=== PATIENT | female | born 1995 | race African-American/Black ===

== ENCOUNTER 2017-03-22 19:20 | Inpatient (IN) | payer OTHER ==
[~2017-03-22] VITALS: Ht 157.5 cm; Wt 43.1 kg
[2017-03-22] MEDS ORDERED: SODIUM CHLORIDE 0.9% 1,000ML IVBOLUS ONE (19:30)
[2017-03-22 19:58] LABS: HEMATOCRIT 41.6 % (34.6-47.8); HEMOGLOBIN 13.7 g/dL (11.7-16.4); WHITE BLOOD COUNT 10.7 x10^3/uL (3.4-10)
[2017-03-22] MEDS ORDERED: PLEASE ENTER ALLERGIES MC SCH ×2 (20:00)
[2017-03-22] MEDS ORDERED: PLEASE ENTER HEIGHT AND WEIGHT MC SCH (20:00)
[2017-03-22 20:06] LABS: ASPARTATE AMINO TRANSFERASE 48 U/L (15-37); BLOOD UREA NITROGEN 9 mg/dL (7-18)
[2017-03-22 20:17] LABS: ACETAMINOPHEN < 2 mcg/mL (10-30)
[2017-03-22] MEDS ORDERED: LORazepam 2 MG/ML, 1ML IVPush ONE ×2 (21:00→23:00)
[2017-03-22] MEDS ORDERED: LORazepam 2 MG/ML, 1ML ONE ×2 (21:02→22:53)
[2017-03-23] MEDS: D5%-0.45NACL+KCL 20MEQ 1,000 ML IV SCH ×3 (00:15→14:15)
[2017-03-23 01:18] LABS: DAU SCREEN DISCLAIMER
[2017-03-23] MEDS ORDERED: ACETAMINOPHEN 325 MG TABLET PO PRN (02:00)
[2017-03-23] MEDS ORDERED: CEFTRIAXONE PMX 1GM/50ML 50 ML IV ONE (02:00)
[2017-03-23 02:50] VITALS: BP 120/81
[2017-03-23] MEDS: CEFTRIAXONE 500 MG in DEXTROSE 5% 50 ML IV SCH ×2 (03:11→13:48)
[2017-03-23 05:58] LABS: ASPARTATE AMINO TRANSFERASE 32 U/L (15-37); BLOOD UREA NITROGEN 7 mg/dL (7-18)
[2017-03-23] MEDS ORDERED: POTASSIUM CHLORIDE 20 MEQ TAB.ER.PRT PO ONE (07:30)
[2017-03-23 08:00] VITALS: BP 98/57
[2017-03-23] MEDS ORDERED: DIPHENHYDRAMINE 50 MG/ML, 1ML IV ONE (16:30)
[2017-03-23] MEDS ORDERED: DIPHENHYDRAMINE 25 MG CAPSULE ONE (16:39)
[2017-03-23] MEDS ORDERED: hydrOXYzine 50 MG/ML IM PRN (17:00)
[2017-03-23] MEDS ORDERED: DIPHENHYDRAMINE 25 MG CAPSULE PO ONE (17:00)
[2017-03-23] MEDS: LORazepam 1MG TABLET PO PRN (21:58)
[2017-03-23 22:00] VITALS: BP 118/94
[2017-03-24 01:21] VITALS: BP 113/80
[2017-03-24] MEDS ORDERED: OLANZAPINE 5 MG TABLET PO SCH (02:00)
[2017-03-24] MEDS: CEFTRIAXONE 500 MG in DEXTROSE 5% 50 ML IV SCH ×2 (02:17→14:41)
[2017-03-24] MEDS: hydrOXYzine 25 MG/ML IM PRN ×2 (02:40→16:57)
[2017-03-24 05:33] LABS: BLOOD UREA NITROGEN 4 mg/dL (7-18)
[2017-03-24 05:39] LABS: HEMATOCRIT 36.2 % (34.6-47.8); HEMOGLOBIN 11.9 g/dL (11.7-16.4); WHITE BLOOD COUNT 9.2 x10^3/uL (3.4-10)
[2017-03-24] MEDS: POTASSIUM CHLORIDE 20 MEQ TAB.ER.PRT PO ONE ×2 (07:00→07:43)
[2017-03-24 07:47] VITALS: BP 95/57
[2017-03-24] MEDS: D5%-0.45NACL+KCL 20MEQ 1,000 ML IV SCH ×2 (11:00→21:43)
[2017-03-24] MEDS ORDERED: LORazepam 2 MG/ML, 1ML IM ONE (14:00)
[2017-03-24] MEDS ORDERED: LORazepam 2 MG/ML, 1ML ONE (14:11)
[2017-03-24] MEDS ORDERED: LORazepam 2 MG/ML, 1ML IVPush ONE (14:30)
[2017-03-24 14:44] VITALS: BP 110/70
[2017-03-24 18:25] VITALS: BP 119/82
[2017-03-24] MEDS: OLANZAPINE 5 MG TABLET PO SCH (20:53)
[2017-03-25 00:49] VITALS: BP 124/80
[2017-03-25] MEDS: hydrOXYzine 25 MG/ML IM PRN (01:05)
[2017-03-25] MEDS: CEFTRIAXONE 500 MG in DEXTROSE 5% 50 ML IV SCH ×2 (02:39→13:41)
[2017-03-25 06:14] LABS: BLOOD UREA NITROGEN 3 mg/dL (7-18)
[2017-03-25 06:17] LABS: ASPARTATE AMINO TRANSFERASE 61 U/L (15-37)
[2017-03-25 07:56] VITALS: BP 95/56
[2017-03-25] MEDS: D5%-0.45NACL+KCL 20MEQ 1,000 ML IV SCH ×2 (08:51→19:15)
[2017-03-25 10:14] VITALS: BP 111/73
[2017-03-25 12:26] VITALS: BP 108/59
[2017-03-25] MEDS: LORazepam 1MG TABLET PO PRN (17:20)
[2017-03-25] MEDS ORDERED: LORazepam 2 MG/ML, 1ML IVPush ONE ×2 (17:36→17:57)
[2017-03-25] MEDS ORDERED: LORazepam 2 MG/ML, 1ML ONE (17:40)
[2017-03-25 19:07] VITALS: BP 125/92
[2017-03-25] MEDS ORDERED: HALOPERIDOL 5 MG/ML IV ONE (20:00)
[2017-03-25] MEDS: OLANZAPINE 5 MG TABLET PO SCH (20:16)
[2017-03-26 02:00] VITALS: BP 96/52
[2017-03-26] MEDS: CEFTRIAXONE 500 MG in DEXTROSE 5% 50 ML IV SCH ×2 (02:18→16:17)
[2017-03-26] MEDS: LORazepam 1MG TABLET PO PRN (02:18)
[2017-03-26] MEDS: D5%-0.45NACL+KCL 20MEQ 1,000 ML IV SCH ×2 (06:12→17:35)
[2017-03-26 07:33] LABS: BLOOD UREA NITROGEN 3 mg/dL (7-18)
[2017-03-26 07:43] VITALS: BP 88/47
[2017-03-26] MEDS ORDERED: OLANZAPINE 10 MG INJ IM PRN (11:00)
[2017-03-26 13:27] VITALS: BP 103/68
[2017-03-26] MEDS ORDERED: FENTANYL PF 100 MCG/2ML ONE (14:42)
[2017-03-26] MEDS ORDERED: FLUMAZENIL 0.1 MG/1 ML, 5ML ONE (14:43)
[2017-03-26] MEDS ORDERED: NALOXONE 1 MG/ML, 2ML ONE (14:43)
[2017-03-26] MEDS ORDERED: MIDAZOLAM 1 MG/ML, 5ML ONE (14:43)
[2017-03-26 16:30] LABS: GLUCOSE, CSF 54 mg/dL (40-80)
[2017-03-26 20:24] VITALS: BP 115/64
[2017-03-26] MEDS: OLANZAPINE 5 MG TABLET PO SCH (20:43)
[2017-03-27 01:07] VITALS: BP 109/71
[2017-03-27] MEDS: D5%-0.45NACL+KCL 20MEQ 1,000 ML IV SCH ×2 (03:22→15:25)
[2017-03-27] MEDS: LORazepam 1MG TABLET PO PRN (03:59)
[2017-03-27] MEDS: CEFTRIAXONE 500 MG in DEXTROSE 5% 50 ML IV SCH (04:00)
[2017-03-27 07:55] VITALS: BP 94/54
[2017-03-27] MEDS: MULTIVITAMIN 1 TABLET PO SCH (08:49)
[2017-03-27] MEDS: OLANZAPINE 5 MG TABLET PO SCH (08:50)
[2017-03-27 11:04] LABS: ASPARTATE AMINO TRANSFERASE 37 U/L (15-37); BLOOD UREA NITROGEN 4 mg/dL (7-18)
[2017-03-27] MEDS: ARIPIPRAZOLE 10 MG TABLET PO SCH (12:53)
[2017-03-27 13:31] VITALS: BP 110/68
[2017-03-27 20:00] VITALS: BP 104/69
[2017-03-28] MEDS: D5%-0.45NACL+KCL 20MEQ 1,000 ML IV SCH ×3 (01:32→21:28)
[2017-03-28 02:00] VITALS: BP 126/93
[2017-03-28 05:23] LABS: BLOOD UREA NITROGEN 8 mg/dL (7-18)
[2017-03-28 05:26] LABS: ASPARTATE AMINO TRANSFERASE 31 U/L (15-37)
[2017-03-28 08:00] VITALS: BP 105/66
[2017-03-28] MEDS: ARIPIPRAZOLE 10 MG TABLET PO SCH (12:04)
[2017-03-28] MEDS: MULTIVITAMIN 1 TABLET PO SCH (12:06)
[2017-03-28 12:56] VITALS: BP 118/79
[2017-03-28 19:58] VITALS: BP 105/74
[2017-03-29 03:50] VITALS: BP 111/80
[2017-03-29 08:45] VITALS: BP 108/72
[2017-03-29] MEDS: MULTIVITAMIN 1 TABLET PO SCH (08:46)
[2017-03-29] MEDS: ARIPIPRAZOLE 10 MG TABLET PO SCH (08:46)
[2017-03-29 09:57] VITALS: BP 112/80
[2017-03-29] MEDS: D5%-0.45NACL+KCL 20MEQ 1,000 ML IV SCH ×2 (13:24→23:13)
[2017-03-29 14:00] VITALS: BP 122/78
[2017-03-29 19:28] VITALS: BP 102/63
[2017-03-30 03:18] VITALS: BP 106/69
[2017-03-30 08:05] VITALS: BP 98/56
[2017-03-30] MEDS: ARIPIPRAZOLE 10 MG TABLET PO SCH (08:49)
[2017-03-30] MEDS: MULTIVITAMIN 1 TABLET PO SCH (08:49)
[2017-03-30] MEDS: D5%-0.45NACL+KCL 20MEQ 1,000 ML IV SCH (08:50)
[2017-03-30 13:57] VITALS: BP 106/74
[2017-03-30 18:39] VITALS: BP 100/63
[2017-03-31 02:00] VITALS: BP 100/64
[2017-03-31 09:09] VITALS: BP 108/71
[2017-03-31] MEDS: MULTIVITAMIN 1 TABLET PO SCH (09:17)
[2017-03-31] MEDS: ARIPIPRAZOLE 10 MG TABLET PO SCH (09:17)
[2017-03-31] MEDS ORDERED: SENNA/DOCUSATE TABLET PO PRN (13:30)
[2017-03-31 14:19] VITALS: BP 104/67
[2017-03-31 18:56] VITALS: BP 103/72
[2017-04-01 03:15] VITALS: BP 112/63
[2017-04-01 07:54] VITALS: BP 99/60
[2017-04-01] MEDS: MULTIVITAMIN 1 TABLET PO SCH (09:08)
[2017-04-01] MEDS: ARIPIPRAZOLE 10 MG TABLET PO SCH (09:08)
[2017-04-01 11:55] LABS: HEMATOCRIT 36.5 % (34.6-47.8); WHITE BLOOD COUNT 8.5 x10^3/uL (3.4-10)
[2017-04-01 12:05] LABS: BLOOD UREA NITROGEN 12 mg/dL (7-18)
[2017-04-01 15:13] VITALS: BP 106/67
[2017-04-01] MEDS ORDERED: MAGNESIUM SULFATE PMX 2GM/50ML 50 ML IV ONE (15:30)
[2017-04-01 19:29] VITALS: BP 103/68
[2017-04-02 02:09] VITALS: BP 97/62
[2017-04-02] MEDS: ARIPIPRAZOLE 10 MG TABLET PO SCH (08:32)
[2017-04-02] MEDS: MULTIVITAMIN 1 TABLET PO SCH (08:32)
[2017-04-02 09:18] VITALS: BP 116/78
[2017-04-02 15:30] VITALS: BP 116/80
[2017-04-02 18:58] VITALS: BP 104/74
[2017-04-03 03:35] VITALS: BP 114/83
[2017-04-03 08:00] VITALS: BP 111/74
[2017-04-03] MEDS: ARIPIPRAZOLE 10 MG TABLET PO SCH (09:11)
[2017-04-03] MEDS: MULTIVITAMIN 1 TABLET PO SCH (09:11)
[2017-04-03 14:22] VITALS: BP 111/75
[2017-04-03 19:30] VITALS: BP 99/66
[2017-04-04 08:13] VITALS: BP 108/71
[2017-04-04] MEDS: ARIPIPRAZOLE 10 MG TABLET PO SCH (08:28)
[2017-04-04] MEDS: MULTIVITAMIN 1 TABLET PO SCH (08:28)
[2017-04-04] MEDS ORDERED: ARIP10TA33 PO (13:12)
== END 2017-04-04 15:59 | DRG 885 ==
LOC: ED 03-23 01:38 → EDIP 03-23 01:52 → 3WST 03-23 02:33 → EDBD 03-23 15:52 → OBSVTOIN 03-23 15:52 → 4WST 03-23 23:18 → 3E 04-03 13:57
PROVIDERS: ADMIT Family Medicine; ATTEND Family Medicine
PROC: 009U3ZX Drainage of Spinal Canal, Percutaneous Approach, Diagnostic (ICD-10-PCS; principal; 2017-03-26)
PROC: B01B1ZZ Fluoroscopy of Spinal Cord using Low Osmolar Contrast (ICD-10-PCS; 2017-03-26)
DX: F20.9 Schizophrenia, unspecified (principal); E46 Unspecified protein-calorie malnutrition; F06.1 Catatonic disorder due to known physiological condition; N30.90 Cystitis, unspecified without hematuria; I44.1 Atrioventricular block, second degree; Z68.1 Body mass index [BMI] 19.9 or less, adult; W19.XXXA Unspecified fall, initial encounter; E86.0 Dehydration; E87.6 Hypokalemia; F12.90 Cannabis use, unspecified, uncomplicated; F32.9 Major depressive disorder, single episode, unspecified; F41.9 Anxiety disorder, unspecified; J45.909 Unspecified asthma, uncomplicated; K59.00 Constipation, unspecified; Y93.02 Activity, running; Z59.0 Homelessness; Z87.820 Personal history of traumatic brain injury; Z87.891 Personal history of nicotine dependence; Y92.89 Other specified places as the place of occurrence of the external cause
CPT/HCPCS: 36415; 62270; 70450; 80048; 80053; 80307; 80329; 81001; 82140; 82945; 83735; 84100; 84134; 84157; 84436; 84443; 84481; 84703; 85025; 86255; 87070; 87077; 87086; 87186; 87205; 87529; 89051; 93005; 93306; 95816; 95819; 96361; 96374; 96376; 99156; 99157; G0378; J0696; J2250; J3010; G0479; G0480; J1630; J2060; J2310; J3410; J3475; J3480; J7030; Q0163

== ENCOUNTER → 2017-04-29 | Outpatient (CLI) | payer OTHER ==
[~2017-04-29] MED LIST: ARIP10TA33 PO; GADOBUTROL 7.5 MMOL/7.5 ML PFS ONE
== END | disposition home or self-care (01) ==
LOC: CFH 09:15
PROVIDERS: ATTEND Psychiatry & Neurology Neurology
DX: R56.9 Unspecified convulsions (principal); R51 Headache
CPT/HCPCS: 70553; A9585